=== PATIENT | male | born 1975 | race Caucasian/White ===

== ENCOUNTER 2018-02-04 19:10 | Emergency (ER) | payer MEDICAID, OTHER ==
[2018-02-04] MEDS: SOD CHLORIDE 0.9% 1,000 ML IV (19:34)
[2018-02-04] MEDS: LORAZEPAM 2 MG INJ IV (19:34)
[2018-02-04 19:52] LABS: ADD MAN DIFF? NO
[2018-02-04 19:54] LABS: WHITE BLOOD COUNT 11.5 10^3/ul (4.8-10.8)
[2018-02-04 19:54] LABS: BASOPHIL # 0.2 10^3/ul (0.0-0.1); BASOPHILS % 1.3 % (0.0-2.0); EOSINOPHILS # 0.2 10^3/ul (0.0-0.5); EOSINOPHILS % 1.7 % (0.0-7.0); HEMATOCRIT 42.7 % (42.0-52.0); HEMOGLOBIN 14.1 g/dl (14.0-18.0); LYMPHOCYTES # 2.7 10^3/ul (0.8-2.9); LYMPHOCYTES % 23.5 % (15.0-51.0); MEAN CORPUSCULAR HEMOGLOBIN 29.8 pg (29.0-33.0); MEAN CORPUSCULAR VOLUME 90.3 fl (82.0-101.0); MEAN PLATELET VOLUME 10.3 fl (7.4-10.4); MONOCYTE # 1.1 10^3/ul (0.3-0.9); MONOCYTES % 9.9 % (0.0-11.0); NEUTROPHIL # 7.3 10^3/ul (1.6-7.5); NEUTROPHILS % 63.1 % (39.0-77.0); PLATELET COUNT 290 10^3/UL (140-415); RED BLOOD COUNT 4.73 10^6/ul (4.70-6.10); RED CELL DISTRIBUTION WIDTH 13.4 % (11.5-14.5)
[2018-02-04 20:09] LABS: ALANINE AMINOTRANSFERASE 29 IU/L (13-69); ALBUMIN 4.7 g/dl (3.3-4.9); ALBUMIN/GLOBULIN RATIO 1.34; ALKALINE PHOSPHATASE 58 IU/L (42-121); ANION GAP 19 (8-16); ASPARTATE AMINO TRANSFERASE 27 IU/L (15-46); BILIRUBIN,INDIRECT 0.2 mg/dl (0-1.1); BILIRUBIN,TOTAL 0.2 mg/dl (0.2-1.3); BLOOD UREA NITROGEN 8 mg/dl (7-20); CALCIUM 9.1 mg/dl (8.4-10.2); CARBON DIOXIDE 23 mmol/L (21-31); CHLORIDE 102 mmol/L (97-110); CREATININE 0.81 mg/dl (0.61-1.24); GLUCOSE 123 mg/dl (70-220); POTASSIUM 3.5 mmol/L (3.5-5.1); SODIUM 140 mmol/L (135-144); TOTAL PROTEIN 8.2 g/dl (6.1-8.1)
[2018-02-04 20:33] LABS: TROPONIN-I < 0.012 ng/ml (0.00-0.12)
== END 2018-02-04 21:31 | disposition home or self-care (01) ==
LOC: E/R 19:10
DX: F43.22 Adjustment disorder with anxiety (principal); J45.909 Unspecified asthma, uncomplicated; F17.210 Nicotine dependence, cigarettes, uncomplicated
CPT/HCPCS: 80053; 80306; 84484; 85025; 93005; 96374; 99284-25

== ENCOUNTER 2018-12-31 00:51 | Emergency (ER) | payer OTHER, MEDICAID ==
[2018-12-31 01:37] LABS: ADD MAN DIFF? NO; BASOPHIL # 0.1 10^3/ul (0.0-0.1); BASOPHILS % 1.1 % (0.0-2.0); EOSINOPHILS # 0.3 10^3/ul (0.0-0.5); HEMATOCRIT 39.3 % (42.0-52.0); HEMOGLOBIN 12.9 g/dl (14.0-18.0); LYMPHOCYTES # 2.9 10^3/ul (0.8-2.9); LYMPHOCYTES % 29.1 % (15.0-51.0); MEAN CORPUSCULAR HEMOGLOBIN 29.3 pg (29.0-33.0); MEAN CORPUSCULAR HGB CONC 32.8 g/dl (32.0-37.0); MEAN CORPUSCULAR VOLUME 89.3 fl (82.0-101.0); MEAN PLATELET VOLUME 10.2 fl (7.4-10.4); MONOCYTE # 0.6 10^3/ul (0.3-0.9); MONOCYTES % 6.1 % (0.0-11.0); NEUTROPHIL # 5.9 10^3/ul (1.6-7.5); NEUTROPHILS % 60.3 % (39.0-77.0); PLATELET COUNT 307 10^3/UL (140-415); RED CELL DISTRIBUTION WIDTH 12.5 % (11.5-14.5)
[2018-12-31 01:37] LABS: WHITE BLOOD COUNT 9.8 10^3/ul (4.8-10.8)
[2018-12-31] MEDS: SOD CHLORIDE 0.9% 500 ML IV (01:38)
[2018-12-31] MEDS: LORAZEPAM 2 MG INJ IV (01:56)
[2018-12-31 02:06] LABS: ALANINE AMINOTRANSFERASE 39 IU/L (13-69); ALBUMIN 3.2 g/dl (3.3-4.9); ALBUMIN/GLOBULIN RATIO 1.23; ALKALINE PHOSPHATASE 43 IU/L (42-121); ANION GAP 10 (5-13); ASPARTATE AMINO TRANSFERASE 20 IU/L (15-46); BILIRUBIN,INDIRECT 0.3 mg/dl (0-1.1); BILIRUBIN,TOTAL 0.3 mg/dl (0.2-1.3); BLOOD UREA NITROGEN 6 mg/dl (7-20); CALCIUM 7.1 mg/dl (8.4-10.2); CARBON DIOXIDE 18 mmol/L (21-31); CHLORIDE 115 mmol/L (97-110); CREATININE 0.51 mg/dl (0.61-1.24); Estimated GFR > 60 mL/min (>60); GLUCOSE 83 mg/dl (70-220); SODIUM 143 mmol/L (135-144); TOTAL PROTEIN 5.8 g/dl (6.1-8.1)
[2018-12-31 02:09] LABS: POTASSIUM 2.9 mmol/L (3.5-5.1)
[2018-12-31 02:18] LABS: B-TYPE NATRIURETIC PEPTIDE 35 PG/ML (0-125); TROPONIN-I < 0.012 ng/ml (0.000-0.120)
[2018-12-31] MEDS: POTASSIUM CHLORIDE (SR) 20 MEQ TAB PO (02:20)
== END 2018-12-31 03:30 | disposition home or self-care (01) ==
LOC: E/R 00:51
DX: E87.6 Hypokalemia (principal); F41.9 Anxiety disorder, unspecified; J45.909 Unspecified asthma, uncomplicated
CPT/HCPCS: 36415; 71045; 80053; 83880; 84484; 85025; 93005; 96374; 99285-25